=== PATIENT | female | born 1930 | race Caucasian/White ===

== ENCOUNTER 2017-12-16 13:26 | Inpatient (IN) | payer MEDICARE ==
[~2017-12-16] VITALS: Ht 157.5 cm; Wt 73.8 kg
[2017-12-16] MEDS ORDERED: SIMVASTATIN40 MG PO (15:35)
[2017-12-16] MEDS ORDERED: GABAPENTIN100 MG PO (15:36)
--- NOTE | 2017-12-16 17:15 | NUR ---
PT ARRIVED FROM ED. REPORT TAKEN. ASSESSMENT DONE. INTAKE INFORMATION RECIEVED FROM PT AND PTS DAUGHTER, VIRGIL. PT REMAINS ON 3L02 BY MT. PTS HOME NC BEING USED PER PT REQUEST R/T IRRIATION FROM HOSPITAL MT. VITALS TAKEN. FLUIDS STARTED. PT PLACED ON TELE #3 PER MD ORDER. PT DENIES NAUSEA AT THIS TIME. PT NPO. AWAITING STOOL SAMPLE. PT UP TO URINATE, 500ML, DARK URINE. BED RAILSUP. CALL LIGHT WITHIN REACH. FAMILY LEAVING FOR THE NIGHT.
[2017-12-16] MEDS ORDERED: ADULT LOW DOSE81 MG PO (17:16)
[2017-12-16] MEDS ORDERED: VITAMIN D1000 UNIT PO (17:16)
[2017-12-16] MEDS ORDERED: TOPROL XL25 MG PO (17:20)
[2017-12-16] MEDS ORDERED: LOSARTAN POTASS50 MG PO (17:20)
--- NOTE | 2017-12-16 18:33 | NUR ---
PT ARRIVED TODAY FOR COLITIS. NPO. 1-2PA, FWW. BEDSIDE COMODE. STOOL SAMPLE NEEDED. BASELINE O2 AT 3L NC. TELE #3. BED ALARM. PT NOT USING CALL LIGHT.
--- NOTE | 2017-12-16 20:08 | NUR ---
RECEIVED REPORTF ROM DAY SHIFT RN. PATIENT IS RESTING IN BED WITH EYES CLOSED. RR 18. CALL LIGHT IN REACH.
--- NOTE | 2017-12-16 22:20 | NUR ---
PATIENT ASSESMENT COMPLETED. PATIENT REPOSITIONED IN BED. PATIENT DENIES ANY NAUSEA. PATIENTS EVENING MEDICAITONS GIVEN PER ORDER. PATIENT DENIES ANY NEEDS AT THIS TIME. PATIENT IS DROWSY BUT EASY TO AWAKE. CALL LIGHT IN REACH.
--- NOTE | 2017-12-16 23:32 | NUR ---
PATIENT IS RESTING IN BED WITH EYES CLOSED, RR 17. CALL LIGHT IN REACH AND BE DALARM ON FOR SAFETY.
--- NOTE | 2017-12-17 02:37 | NUR ---
PATIENTS VITALS TAKEN AND RECORDED BY STRIPPER APPRENTICE. PATIENT ASSISTED A 1PA W/FWW TO [facility]. PATIENT WAS ABLE TO VOID. PATIENT IS BACK IN BED RESTING. NEW IV PLACED. PATIENT DENIES ANY FURTHER NEEDS AT THIS TIME. PATIENTS CALL LIGHT IS WITHIN REACH AND BED ALRM ON FOR SAFETY. PATIENT DENIES ANY PAIN OR NAUSEA.
--- NOTE | 2017-12-17 04:57 | NUR ---
PATIENT IS RESTING IN BED WITH EYES CLOSED, RR 17. CALL LIGHT IN REACH AND ALARM ON FOR SAFETY.
--- NOTE | 2017-12-17 05:06 | NUR ---
PATIENT RESTED WELL THROUGHOUT THE SHIFT. PATIENT IS NPO AT THIS TIME. PATIENT IS A 1PA W/FWW. PATIENT IS ON 3L VIA NC AND THIS IS CHRONIC. PATIENT IS ON TELE #3, NSR, AND HR IN THE 80-90'S. PATIENT IS FORGETFUL AT TIMES. BED ALARM IS ON FOR SAFETY. NO BMS THIS SHIFT. STOOL SAMPLE NEEDED.
--- NOTE | 2017-12-17 05:41 | NUR ---
PATIENTS VITALS TAKEN AND RECORDED. PATIENT ASSISTED TO THE RESTROOM A 1PA TO THE BSC. PATIEN WAS ABLE TO VOID. PATIENT IS BACK IN BED RESTING. NO NAUSEA OR PAIN NOTED. PATIENTS MORNING MEDICATIONS GIVEN PER ORDER. PATIENT REMAINS NPO.
--- NOTE | 2017-12-17 08:15 | NUR ---
PATIENT WASHED HANDS AND FACE. ORAL AND DENTURE CARE DONE. TALKED TO RN AND PATIENT ABOUT POSSIBLE SHOWER THIS AFTERNOON AFTER IV ANTIBIOTICS ARE FINISHED IF PATIENT IS FEELING UP TO IT.
--- NOTE | 2017-12-17 08:42 | NUR ---
PT AWAKE IN BED, ALERT AND ORIENTED. LINDSEY TAI ASSISTED PT TO WASH FACE AND BRUSH DENTURES. NOTED PT HAVE OCC DRY COUGH. REPORTS 08/09 "ACHE" IN ABD, STATES "I THINK IT'S FROM THROWING UP." DENIES NAUSEA OR ABD CRAMPING, DENIES HAVING BM OR PASSING GAS. IV INFUSING WNL. ASSESSMENT COMPLETED. CALL LIGHT WITHIN REACH, DAUGHTER AT BEDSIDE.
[2017-12-17] MEDS ORDERED: TOPROL XL25 MG PO (10:08)
[2017-12-17] MEDS ORDERED: PRILOSEC OTC20 MG PO (10:10)
[2017-12-17] MEDS ORDERED: ARTHRITIS PAIN650 MG PO (10:12)
--- NOTE | 2017-12-17 10:20 | NUR ---
PT AWAKE IN BED. DENIES NEEDS OR CONCERNS AT THIS TIME. CALL LIGHT WITHIN REACH.
--- NOTE | 2017-12-17 10:23 | NUR ---
MED REC COMPLETE
--- NOTE | 2017-12-17 10:25 | NUR ---
SPOKE WITH PATIENT AND DAUGHTER IN ROOM. PATIENT AWAKE, ORIENTED. PATIENT STATES SHE FEELS "SOMEWHAT BETTER". PATIENT LIVES WITH DAUGHTER WHO IS CAREGIVER. PATIENT HAS WALKERS AT HOME, USES THEM FOR AMBULATION. PATIENT DOES NOT HAVE WHEELCHAIR, BUT HAS A RAMP AT THE HOME. PATIENT IS CHRONICALLY ON OXYGEN. SHE OWNS HER OWN CONCENTRATOR. DAUGHTER STATES SHE ONLY LEAVES HER FOR SHORT TIMES. DAUGHTER WORKS WITHIN FEW MINUTES FROM HOME. PATIENT HAS LIFE ALERT IN PLACE AT HOME. PATIENT AND DAUGHTER EXPECT PATIENT TO RETURN HOME AT DISCHARGE. DAUGHTERS ONLY CONCERN IS PATIENT WAS SO WEAK SHE WAS HAVING TROUBLE GETTING HER UP. DISCUSSED WE WILL HAVE PHYSICAL THERAPY SEE PATIENT AND IF SHE NEEDS FOLLOW AT HOME WE CAN GET THAT ORDERED. PATIENT STATES "I THINK I'LL DO FINE WHEN I FEEL BETTER". UPDATED DR GALEANA AND STAFF.
--- NOTE | 2017-12-17 12:20 | NUR ---
PT ADVANCED TO CLEAR LIQUIDS, GEOVANNA WELL SO FAR. PT DENIES NAUSEA OR OTHER CONCERNS. DAUGHTER AT BEDSIDE. BED ALARM ON.
--- NOTE | 2017-12-17 14:50 | NUR ---
PT RESTING IN BED WITH EYES CLOSED, RESP EVEN AND UNLABORED. BED ALARM ON.
--- NOTE | 2017-12-17 15:11 | NUR ---
DAUGHTER ASKING ABOUT FOODS PATIENT CAN AND SHOULDN'T EAT. PATIENT LIVES WITH HER DAUGHTER, VIRGIL. PATIENT EATS TWO MEALS WITH HER DAUGHTER AND IS ON HER OWN DURING THE DAY. SHE SUCKS ON JOLLY RANCHERS THROUGHOUT THE DAY. HER DAUGHTER THINKS IT COULD BE UP TO 20 PIECES A DAY. DRINKS 3 CUPS OF COFFEE AND ABOUT 3 CUPS OF WATER. EATS MEAT 1-2 TIMES/MONTH. LIKES PEACH YOPLAIT YOGURT. WOULD EAT A WHOLE BOX OF MAC & CHEESE IF YOU LET HER. WITH VIRGIL I DISCUSSED SOME COMMON TRIGGER FOODS, BUT TOLD HER THAT A COLITIS CONDITION IS DIFFERENT FOR EVERYBODY. SHE WILL NEED TO PAY ATTENTION TO SPICES, RAW VEGGIES, DAIRY, AND HIGH-FIBER FOODS AND SEE HOW THEY AFFECT HER MOM. PROVIDED A HANDOUT FROM THE [facility] ON "WHAT TO EAT." SHE APPRECIATED THE INFO AND IDENTIFIED SOME THINGS SHE CAN DO AT HOME TO HELP HER MOM EAT BETTER. IF PATIENT NEEDS LOW-FIBER DIET INFORMATION, I WILL PROVIDE INFO ON THAT WHEN APPROPRIATE.
--- NOTE | 2017-12-17 16:18 | NUR ---
PATIENT RESTING IN BED, EYES CLOSED. CALL LIGHT IN REACH. NO OTHER NEEDS AT THIS TIME.
--- NOTE | 2017-12-17 17:19 | NUR ---
PT RESTING IN BED, REPORTS FEELING DROWSY. DENIES PAIN, NAUSEA OR OTHER CONCERNS. IV INFUSING WNL. CALL LIGHT WITHIN REACH, BED ALARM ON.
--- NOTE | 2017-12-17 17:35 | NUR ---
PT 1PA WITH WALKER TO BSC. BACK TO BED, BED ALARM ON. CALL LIGHT WITHIN REACH. DINNER ORDERED.
--- NOTE | 2017-12-17 19:05 | NUR ---
SHIFT REPORT RECEIVED. PATIENT RESTING IN BED. APPEARED TO BE SLEEPING BUT WOKE EASILY. PATIENT DENIES PAIN, NAUSEA OR VOMITING AT THIS TIME. CALL LIGHT IN REACH.
--- NOTE | 2017-12-17 21:00 | NUR ---
EVENING MEDS GIVEN PER OTDER. PATIENT RESTING IN BED. DENIES PAIN OR NAUSEA. LUNGS ARE CLEAR THROUGHOUT. 3L NC. ABD MILDLY DISTENDED, BOWEL SOUNDS ACTIVE. PATIENT PASSING GAS, NO BM THIS SHIFT. TOLERATING FULL LIQUIDS. PATIENT IS HARD OF HEARING BUT ORIENTED X4. IV FLUIDS INFUSING, IV SITE WNL. NO OTHER NEEDS AT THIS TIME. TELE #3, HR IN THE 80'S.
--- NOTE | 2017-12-17 21:29 | NUR ---
VITALS AND I&OS DONE AND CHARTED. FRESH WATER OFFERED, SHE DID NOT WANT. BEDSIDE TABLE AND CALL LIGHT WITHIN REACH. PT NEEDS NOTHING ELSE AT THIS TIME.
--- NOTE | 2017-12-17 21:30 | NUR ---
PATIENT UP TO BSC. TOLERATED WELL. SBA W/FWW. PATIENT DENIES DIZZINESS. CCU RN RECOGNIZED SUSTAINED V TACH ON PATIENT TELE. MD CONTACTED, NEW ORDERS FOR EKG AND LABS. PATIENT AWARE, ALL QUESTIONS ANSWERED.
--- NOTE | 2017-12-17 22:12 | NUR ---
EKG DONE, HAS SEEN PRINT OUT. NO NEW ORDERS.
--- NOTE | 2017-12-17 23:00 | NUR ---
IV ABX FINISHED. PATIENT SLEEPING SOUNDLY. CALL LIGHT IN REACH.
--- NOTE | 2017-12-17 23:16 | NUR ---
CHANGED PTS TELE BATTERY.
--- NOTE | 2017-12-18 03:00 | NUR ---
PATIENT RESTING IN BED. IV FLUIDS INFUSING PER ORDER, SITE WNL. 3L NC. CALL LIGHT IN REACH.
--- NOTE | 2017-12-18 03:04 | NUR ---
VITALS AND I&OS DONE AND CHARTED. HELPED PT TO THE BSC AND BACK TO BED. BEDSIDE TABLE AND CALL LIGHT IN REACH. PT VERY THANKFUL TO ME FOR HELPING HER.
--- NOTE | 2017-12-18 05:57 | NUR ---
VITALS AND I&OS DONE AND CHARTED. BEDSIDE TABLE AND CALL LIGHT WITHIN REACH. FRESH WATER GIVEN
--- NOTE | 2017-12-18 06:00 | NUR ---
MORNING ABX STARTED. EDUCATION TO PATIENT. SHE IS HOPEFUL TO GO HOME THIS AM. DISCUSSED PLAN OF CARE. PATIENT READY TO ORDER CREAM OF WHEAT FOR BREAKFAST. NO PAIN OR NAUSEA. DENIES TOILETING NEEDS AT THIS TIME. CALL LIGHT IN REACH.
--- NOTE | 2017-12-18 06:22 | NUR ---
PATIENT SLEPT WELL DURING THE NIGHT. CCU RECOGNIZED SUSTAINED VTACH ON TELE WHEN PATIENT UP TO BS, LABS & EKG WERE NORMAL. PATIENT CALLS APPROPRIATLY, ORIENTED X4. SBA W/FWW TO BSC, HX VERTIGO. IV FLUIDS & ABX. AAT DIET TO REGULAR. PATIENT ORDERED CREAM OF WHEAT THIS AM. NO PAIN OR NAUSEA. NO LOOSE STOOLS DURING THE NIGHT. URINE OUTPUT QS. 3L NC, CHRONIC.
--- NOTE | 2017-12-18 07:10 | NUR ---
REPORT RC'D FROM BLUEPRINT DEVELOPER NURSE. PT RESTING IN COMFORTABLY IN BED AND REQUESTING BREAKFAST. RESPIRATIONS EVEN AND UNLABORED. CONTINUOUS IV FLUIDS INFUSING. DENIES ANY OTHER NEEDS AT THIS TIME. CALL LIGHT WITHIN REACH.
--- NOTE | 2017-12-18 07:45 | NUR ---
NEW BAG OF D5 1/2 NS WITH 20 MEQ K HUNG. PT ASSISTED TO BSC WITH FWW AND SBA. PT ASSISTED BACK TO BED. PT COMPLETED WITH BREAKFAST TRAY, DID NOT LIKE BREAKFAST, GIVEN JELLO, DENIES NAUSEA. PT DENIES OTHER NEEDS AT THIS TIME.
--- NOTE | 2017-12-18 09:10 | NUR ---
PT RESTING IN BED, A&O X3 AND RESPONDING APPROPRIATELY. RESPIRATIONS EVEN AND UNLABORED ON 3L NC. D5 1/2 NS WITH 20 MEQ POASSIUM INFUSING AT 100 ML/HR, LFA IV PATENT, WNL. BOWEL TONES ACTIVE IN ALL FOUR QUADRANTS, DENIES N/V/D. TRACE EDEMA NOTED IN BLE. CRACKELS NOTED IN BILATERAL LOWER BASES AND EDUCATED ON DEEP BREATHING, VERBALIZED AN UNDERSTANDING. ALL MORNING MEDICATIONS ADMINISTERED.
--- NOTE | 2017-12-18 10:29 | NUR ---
NEW ORDERS RC'D FROM DR. GALEANA. PT UPDATED ON PLAN OF CARE.
--- NOTE | 2017-12-18 10:35 | NUR ---
ORTHOSTATIC VITALS COMPLETED PER ORDER. PT TOELRATED WELL, DENIES DIZZINESS. PT SALINE LOCKED. LAB TO BEDSIDE FOR STAT LABS. SHIPPING TECHNICIAN TO ASSIST PT WITH SHOWER. TELEMETERY REMOVED. PT DENIES OTHER NEEDS AT THIS TIME.
--- NOTE | 2017-12-18 11:00 | NUR ---
PATIENT UP TO SHOWER WITH FWW STANDBY ASSIST. PATIENT HAD NO COMPLAINTS ABOUT BEING DIZZY NOR SHORT OF BREATH. PATIENT UP TO CHAIR STATES THAT SHE FEELS GOOD. WARM BLANKET GIVEN CALL BUTTON IN REACH. NO OTHER NEEDS AT THIS TIME.
[2017-12-18] MEDS ORDERED: CIPROFLOXACIN500 MG PO (12:35)
[2017-12-18] MEDS ORDERED: METRONIDAZOLE250 MG PO (12:36)
--- NOTE | 2017-12-19 07:24 | EKG ---
[facility] [address] [facility] [address] [place] [address] Signed Normal sinus rhythm Left axis deviation Abnormal ECG No previous ECGs available Confirmed by KIMBERLI GALEANA MD ([id number]) on 12/19/2017 7:24:19 AM Electronically Signed By: KIMBERLI GALEANA MD 12/19/17 0724 PATIENT NAME: JOSEPH SHUKLA BRIELLE Electrocardiogram DATE OF : [birth year] PHYSICIAN: KIMBERLI GALEANA MD REPORT #: [id number] REPORT IS CONFIDENTIAL AND NOT TO BE RELEASED WITHOUT AUTHORIZATION
== END 2017-12-18 13:10 | disposition home or self-care (01) | DRG 392 ==
LOC: ED 13:26 → MS 16:31
PROVIDERS: ADMIT Internal Medicine
DX: K52.9 Noninfective gastroenteritis and colitis, unspecified (principal); I10 Essential (primary) hypertension; E74.39 Other disorders of intestinal carbohydrate absorption; M19.90 Unspecified osteoarthritis, unspecified site; J84.10 Pulmonary fibrosis, unspecified; Z99.81 Dependence on supplemental oxygen; D64.9 Anemia, unspecified; T39.015A Adverse effect of aspirin, initial encounter; G62.9 Polyneuropathy, unspecified; E55.9 Vitamin D deficiency, unspecified; E04.9 Nontoxic goiter, unspecified; E78.5 Hyperlipidemia, unspecified; Z66 Do not resuscitate; Z86.73 Personal history of transient ischemic attack (TIA), and cerebral infarction without residual deficits; Z87.891 Personal history of nicotine dependence; Z79.899 Other long term (current) drug therapy
CPT/HCPCS: 36415; 71045; 74177; 80048; 80053; 81001; 82150; 83605; 83690; 83735; 84100; 85018; 85025; 93005; 93010; 96361; 96365; 96375; 97116; 97161; 99285; J0692; J0744; J1170; J1650; J2405; J7030; J7060; Q9967

== ENCOUNTER 2018-01-27 17:31 | Emergency (ER) | payer MEDICARE ==
[~2018-01-27] VITALS: Ht 157.5 cm; Wt 73.8 kg
--- OUTSIDE RECORDS SUMMARY | ~2018-01-27 | XMS | Clinical Summary ---
Demographics + + + | Address | [address] | | | [place] [address] | + + + | Home Phone | | + + + | Preferred Language | Unknown | + + + | Marital Status | Single | + + + | Pentecostalism Affiliation | Unknown | + + + | Race | Unknown | + + + | Ethnic Group | Unknown | + + + Author + + + | Author | [email or web address] | + + + | Organization | [facility] [employer] | + + + | Address | Unknown | + + + | Phone | Unavailable | + + + Care Team Providers + +------+ + | Care Fixed Wing Aircraft Crew Chief Name | Role | Phone | + +------+ + PP | Unavailable | + +------+ + Allergies Not on File Current Medications Not on file Active Problems Not on file Social History + +-------+ +--------+------+ | Tobacco Use | Types | Packs/Day | Years | Date | | | | | Used | | + +-------+ +--------+------+ | Never Assessed | | | | | + +-------+ +--------+------+ + + + | Sex Assigned at | Date Recorded | | | | + + + | Not on file | | + + + Plan of Treatment Not on file Results Not on filefrom Last 3 Months Insurance + +--------+ +------+-------+ + | Payer | Benefi | Subscriber | Type | Phone | Address | | | t Plan | ID | | | | | | / | | | | | | | Group | | | | | + +--------+ +------+-------+ + | MEDICARE | MEDICA | [id number] | | | [address] | | | RE | | | | [place] [address] | | | IP-OP | | | | | + +--------+ +------+-------+ + + +--------+ +--------+ + + | Guarantor Name | Accoun | Relation to | Date | Phone | Billing Address | | | t Type | Patient | of | | | | | | | | | | + +--------+ +--------+ + + | JOESPH BRADY | Person | Self [birth year] | Home: | [address] | | | al/Fam | | 1930 | [phone] | [place] [address] | | | hanny | | | [phone] | | + +--------+ +--------+ + +"
--- OUTSIDE RECORDS SUMMARY | ~2018-01-27 | XMS | Clinical Summary ---
Demographics + + + | Address | [address] | | | [place] [address] | + + + | Home Phone | | + + + | Preferred Language | Unknown | + + + | Marital Status | Single | + + + | Mosque Affiliation | Unknown | + + + | Race | Unknown | + + + | Ethnic Group | Unknown | + + + Author + + + | Author | [facility] | + + + | Organization | [facility] [employer] [facility] | + + + | Address | Unknown | + + + | Phone | Unavailable | + + + Care Team Providers + +------+ + | Care Mechanical Shovel Operator Name | Role | Phone | + [...] +------+-------+ + | MEDICARE | MEDICA | [id number] | | | [address] | | | RE | | | | [place] [address] | | | IP-OP | | | [...] | 1930 | [phone] | [place] [address] | | | hanny | | | [phone] | | + +--------+ +--------+ + +"
[~2018-01-27 17:31] MED LIST: ADULT LOW DOSE81 MG PO; ARTHRITIS PAIN650 MG PO; CIPROFLOXACIN500 MG PO; GABAPENTIN100 MG PO; LOSARTAN POTASS50 MG PO; METRONIDAZOLE250 MG PO; PRILOSEC OTC20 MG PO; SIMVASTATIN40 MG PO; TOPROL XL25 MG PO; VITAMIN D1000 UNIT PO
--- NOTE | 2018-01-28 16:34 | EKG ---
[facility] [address] [place] [address] Signed Normal sinus rhythm Anterior infarct , age undetermined Abnormal ECG When compared with ECG of 17-DEC-2017 21:38, T wave inversion more evident in Anterior leads Confirmed by KIMBERLI GALEANA MD ([id number]) on 01/28/2018 4:33:49 PM Electronically Signed By: KIMBERLI GALEANA MD 01/28/18 1634 PATIENT NAME: JOSEPH SHUKLA Electrocardiogram DATE OF : [birth year] PHYSICIAN: KIMBERLI GALEANA MD REPORT #: [id number] REPORT IS CONFIDENTIAL AND NOT TO BE RELEASED WITHOUT AUTHORIZATION
== END 2018-01-27 21:46 | disposition home or self-care (01) ==
LOC: ED 17:31
PROC: 0T9B70Z Drainage of Bladder with Drainage Device, Via Natural or Artificial Opening (ICD-10-PCS; principal; 2018-01-27)
DX: R53.1 Weakness (principal); Z86.73 Personal history of transient ischemic attack (TIA), and cerebral infarction without residual deficits; Z87.891 Personal history of nicotine dependence; Z91.013 Allergy to seafood; Z79.899 Other long term (current) drug therapy
CPT/HCPCS: 51701; 71045; 80053; 81001; 83690; 84484; 85025; 93005; 93010; 96360; 99285; J7040

== ENCOUNTER 2018-01-28 08:48 | Inpatient (IN) | payer MEDICARE ==
[~2018-01-28] VITALS: Ht 157.5 cm; Wt 70.8 kg
--- OUTSIDE RECORDS SUMMARY | ~2018-01-28 | XMS | Clinical Summary ---
Demographics + + + | Address | [address] | | | [place] [address] | + + + | Home Phone | | + + + | Preferred Language | Unknown | + + + | Marital Status | Single | + + + | Religion Affiliation | Unknown | + + + | Race | Unknown | + + + | Ethnic Group | Unknown | + + + Author + + + | Author | [facility] | + + + | Organization | [facility] [employer] [facility] | + + + | Address | Unknown | + + + | Phone | Unavailable | + + + Care Team Providers + +------+ + | Care Hot Tamale Man Name | Role | Phone | + [...] +------+-------+ + | MEDICARE | MEDICA | [id number] | | | [address] | | | RE | | | | [place] [address] | | | IP-OP | | | | | + +--------+ +------+-------+ + + +--------+ +--------+ + + | Guarantor Name | Accoun | Relation to | Date | Phone | Billing Address | | | t Type | Patient | of | | | | | | | | | | + +--------+ +--------+ + + | JOSEPH BRADY | Person | Self | [birth year] | Home: | [address] | | | al/Fam | | 1930 | [phone] | [place] [address] | | | h[place] | | | [phone] | | + +--------+ +--------+ + +"
--- OUTSIDE RECORDS SUMMARY | ~2018-01-28 | XMS | Clinical Summary ---
Demographics + + + | Address | [address] | | | [place] [address] | + + + | Home Phone | | + + + | Preferred Language | Unknown | + + + | Marital Status | Single | + + + | Mormonism Affiliation | Unknown | + + + | Race | Unknown | + + + | Ethnic Group | Unknown | + + + Author + + + | Author | [facility] | + + + | Organization | [facility] | + + + | Address | Unknown | + + + | Phone | Unavailable | + + + Care Team Providers + +------+ + | Care Diesel Truck Technician Name | Role | Phone | + +------+ + PP | Unavailable | + +------+ + Allergies Not on File Current Medications Not on file Active Problems Not on file Encounters +--------+ + + + + | Date | Type | Specialty | Care Team | Description | +--------+ + + + + | 01/28/ | Hospital | | Jose Longo MD | Diagnosis unknown | | 2017 | Encounter | | | | +--------+ + + + + | 01/28/ | Ancillary | | Shaneka Hubbard Procedure | Diagnosis unknown | | 2018 | Orders | | Radiologist | | +--------+ + + + + from Last 3 Months Social History + +-------+ +--------+------+ | Tobacco [...] + Plan of Treatment Not on file Procedures + +--------+ + + + | Procedure Name | Priori | Date/Time | Associated Diagnosis | Comments | | | ty | | | | + +--------+ + + + | CT HEAD WO CONTRAST | Routin | 01/28/2018 | Diagnosis unknown | Results for this | | | e | 10:57 AM | | procedure are in the | | | | PDT | | results section. | + +--------+ + + + from Last [address] head without contrast (01/28/2018 10:57 AM) + + + | Narrative | Performed At | + + + | This is a non-reportable procedure without a radiologist report and | [facility] | | is used for image storage only | [facility]IOLOGY | + + + + + + + + | Performing | Address | City/State/Zipcode | Phone Number | | Organization | | | | + + + + + | [facility] | [address] | [place] [address] | | + + + + + from Last 3 Months Insurance + +--------+ +------+-------+ + | Payer | Benefi | Subscriber | Type | Phone | Address | | | t Plan | ID | | | | | | / | | | | | | | Group | | | | | + +--------+ +------+-------+ + | MEDICARE | MEDICA | [id number] | | | [address] | | | RE | | | | [place] [address] | | | IP-OP | | | | | + +--------+ +------+-------+ + + +--------+ +--------+ + + | Guarantor Name | Accoun | Relation to | Date | Phone | Billing Address | | | t Type | Patient | of | | | | | | | | | | + +--------+ +--------+ + + | JOSEPH SHUKLA | Person | Self | [birth year] | Home: | [address] | | | al/Fam | | 1930 | [phone] | [place] [address] | | | [place] | | | [phone] | | + +--------+ +--------+ + +"
--- OUTSIDE RECORDS SUMMARY | ~2018-01-28 | XMS | Encounter Summary ---
Demographics + + + | Address | [address] | | | [place] [address] | + + + | Home Phone | | + + + | Preferred Language | Unknown | + + + | Marital Status | Single | + + + | Yarsanism Affiliation | Unknown | + + + | Race | Unknown | + + + | Ethnic Group | Unknown | + + + Author + + + | Author | [facility] | + + + | Organization | [facility] | + + + | Address | Unknown | + + + | Phone | Unavailable | + + + Care Team Providers + +------+ + | Care Tool And Die Designer Name | Role | Phone | + +------+ + PCP | Unavailable | + +------+ + Reason for Visit MRI/CAT Scan (Routine) + +--------+ + + + + | Status | Reason | Specialty | Diagnoses / | Referred By | Referred To | | | | | Procedures | Contact | Contact | + +--------+ + + + + | Pending | | Radiology | Diagnoses | , [facility] | | | Review | | | Diagnosis | Procedure | | | | | | unknown | Radiologist | | | | | | Procedures | | | | | | | CT head | | | | | | | without | | | | | | | contrast | | | + +--------+ + + + + Encounter Details +--------+ + + + + | Date | Type | Department | Care Team | Description | +--------+ + + + + | 01/28/ | Hospital | [facility] | Jose Longo MD | Diagnosis unknown | | 2018 | Encounter | [facility] | [address] | | | | | RADI[address] | [place] [address] | | | | | [address] | [phone] | | | | | [place] [address] | | | | | | [phone] | | | +--------+ + + + + Social History + +-------+ +--------+------+ | Tobacco [...] on file | | + + + as of this encounter Plan of Treatment Not on fileas of this encounter Procedures + +--------+ + + + | [...] section. | + +--------+ + + + in this encounter Results CT head without contrast (01/28/2018 10:57 AM) + + + | Narrative | Performed At | + + + | This is a non-reportable procedure without a radiologist report and | [facility] | | is used for image storage only | RADIOLOGY | + + + + + + + + | Performing | Address | City/State/Zipcode | Phone Number | | Organization | | | | + + + + + | [facility] | [address] | [place] [address] | | + + + + + in this encounter Visit Diagnoses + + | Diagnosis | + + | Diagnosis unknown | + + | Other unknown and unspecified cause of morbidity or mortality | + +"
--- OUTSIDE RECORDS SUMMARY | ~2018-01-28 | XMS | Encounter Summary ---
Demographics + + + | Address | [address] | | | [place] [address] | + + + | Home Phone | | + + + | Preferred Language | Unknown | + + + | Marital Status | Single | + + + | Confucianism Affiliation | Unknown | + + + | Race | Unknown | + + + | Ethnic Group | Unknown | + + + Author + + + | Author | [facility] | + + + | Organization | [facility] | + + + | Address | Unknown | + + + | Phone | Unavailable | + + + Care Team Providers + +------+ + | Care Apartment Groundskeeper Name | Role | Phone | + +------+ + PCP | Unavailable | + +------+ + Reason for Referral MRI/CAT Scan (Routine) + +--------+ + + + + | Status | Reason | Specialty | Diagnoses / | Referred By | Referred To | | | | | Procedures | Contact | Contact | + +--------+ + + + + | Pending | | Radiology | Diagnoses | Xr[facility] | | | Review | | | [...] + + | 01/28/ | Ancillary | [facility] | [facility] Procedure | Diagnosis unknown | | 2018 | [facility] | Radiologist | | | | | [address] | | | | | | [place] [address] | | | | | | [phone] | | | +--------+ + + + [...] Treatment Not on fileas of this encounter Results CT head without contrast (01/28/2018 10:57 AM) + + + | Narrative | Performed At | + + + | This is a non-reportable procedure without a radiologist report and | [facility] | | is used for image storage only | RADIOLOGY | + + + + + + + + | Performing | Address | City/State/Zipcode | Phone Number | | Organization | | | | + + + + + | [facility] | [address] | [place] [address] | | + + + + + in this encounter Visit Diagnoses + + | Diagnosis | + + | Diagnosis unknown | + + | Other unknown and unspecified cause of morbidity or mortality | + +"
--- OUTSIDE RECORDS SUMMARY | ~2018-01-28 | XMS | Clinical Summary ---
Demographics + + + | Address | [address] | | | [place] [address] | + + + | Home Phone | | + + + | Preferred Language | Unknown | + + + | Marital Status | Single | + + + | Christianity Affiliation | Unknown | + + + | Race | Unknown | + + + | Ethnic Group | Unknown | + + + Author + + + | Author | [facility] | + + + | Organization | [facility] | + + + | Address | Unknown | + + + | Phone | Unavailable | + + + Care Team Providers + +------+ + | Care Absence Management Consultant Name | Role | Phone | + [...] +------+-------+ + | MEDICARE | MEDICA | [id number] | | | [address] | | | RE | | | | [place] [phone] | | | IP-OP | | | [...] | [phone] | [phone] [place] [address] | | | hanny | | | [phone] | | + +--------+ +--------+ + +"
--- NOTE | 2018-01-28 17:27 | NUR ---
Medications reconciled with pharmacy records and RX bottles
--- NOTE | 2018-01-28 17:40 | NUR ---
PATIENT SITTING UP IN BED TALKING TO FAMILY ON PHONE. FRESH WATER GIVEN. CALL LIGHT IN REACH. NO FURTHER NEEDS AT THIS TIME.
--- NOTE | 2018-01-28 18:31 | NUR ---
NEW ED ADMIT. HEMORRHAGIC STROKE. LEFT LEG WEAKNESS. WHEELCHAIR BASELINE. LIVES WITH DAUGHTER. FALL X2 AT HOME. NS @ 75 IN LH. HARD STICK. ANXIETY/VERY PARTICULAR AND IRRITABLE AT TIMES. SPEECH EVAL WITH SPEECH THERAPY IN THE MORNING. SOFT, SMOOTH FOODS ALLOWED FOR NOW. NO APPARENT SWALLOWING DIFFICULTY. EDEMA LE. ALLEVYN TO COCCYX.
--- NOTE | 2018-01-28 19:20 | NUR ---
SHIFT REPORT RECEIVED. PATIENT APPEARED TO BE SLEEPING. WOKE EASILY TO VOICE. NO NEEDS AT THIS TIME. CALL LIGHT IN REACH.
--- NOTE | 2018-01-28 21:24 | NUR ---
VITALS AND I&OS DONE AND CHARTED. FRESH WATER GIVEN. BEDSIDE TABLE AND CALL LIGHT IN REACH.
--- NOTE | 2018-01-28 21:27 | NUR ---
IN ROOM FOR EVENING MEDS. PT ASSESSMENT/NEURO ASSESSMENT COMPLETE. PT AOX4, PERRLA, FACE SYMMETRICAL, TONGUE MIDLINE. EXTREMITY STRENGTH EQUAL BILATERALLY. PT DENIED ANY NUMBNESS OR TINGLING IN HER EXTREMITIES. DENIES N/V. LS CLEAR, BT ACTIVE, NO ABD. TENDERNESS. PULSES STRONG AND EQUAL BILATERALLY. PITTING EDEMA NOTED ON BILATERAL LOWER EXTREMITIES. IV WNL. PT RESTING COMFORTABLY IN BED, REPOSITIONED. PT PLEASANT AND APPROPRIATE. PT TOLERATED PO MEDS WITHOUT DIFFICULTY. NO REQUESTS AT THIS TIME. CALL LIGHT WITHIN REACH.
--- NOTE | 2018-01-29 00:33 | NUR ---
PT SLEEPING SOUNDLY IN BED. IV RUNNING WNL. NO REQUESTS AT THIS TIME. CALL LIGHT WITHIN REACH.
--- NOTE | 2018-01-29 01:35 | NUR ---
VITALS AND I&OS DONE AND CHARTED. HELPED PT ON AND OFF OF THE BEDPAN WITH OSBALDO RESTREPO HELP. BEDSIDE TABLE AND CALL LIGHT IN REACH. PT NEEDS NOTHING MORE AT THIS TIME.
--- NOTE | 2018-01-29 01:46 | NUR ---
IN ROOM FOR PT ASSESSMENT / NEURO CHECK. PT A0X4. PT STATED THAT THE YEAR WAS 1981, BUT CORRECTED HERSELF LATER IN THE ASSESSMENT. PERRLA 2-3 MM BRISK. PT UNABLE TO TRACK MY FINGER TO HER LEFT VISUAL FIELD W/O MOVING HER HEAD. TRACKING TO THE RIGHT IS NORMAL WITH NO HEAD MOVEMENT OR NYSTAGMUS NOTED. PT ALSO HAS EXHIBITED DECREASED PERIPHERAL VISION IN LEFT VISUAL FIELD. DURING THE ASSESSMENT MY FINGER TIP WAS MORE THAN 10 IN[address] IN FRONT OF HER BEFORE SHE MENTIONED BEING ABLE TO VISUALISE MY FINGER. PT'S SPEECH CLEAR, STRENGTH IN UPPER EXTREMITIES EQUAL BILATERALLY. PT DENIES ANY NUMBNESS OR TINGLING. LS CLEAR, PULSES EQUAL, BT ACTIVE. IV RUNNING WNL. PT HAS NO FURTHER REQUESTS AT THIS TIME. CALL LIGHT WITHIN REACH.
--- NOTE | 2018-01-29 03:00 | NUR ---
PATIENT SLEEPING SOUNDLY. RR 22. HOB ELEVATED. IV FLUIDS PER ORDER, SITE WNL.
--- NOTE | 2018-01-29 06:39 | NUR ---
PT SLEPT THROUGHOUT THE NIGHT. PT AOX4. CAN BE FORGETFUL. PERRLA, 2-3 MM, BRISK. PT DENIES ANY PAIN. LS CLEAR, BT ACTIVE, ABD. NONTENDER. NO C/O N/V/D. GOOD URINE OUTPUT, USES BEDPAN. EDEMA PRESENT IN LOWER LIMBS. SCD'S ON. L. SHOULDER HAS BEEN SORE, AND L. LEG REMAINS WEAK. PT IS ON TELE #4. NORMAL SINUS. PT ON 3LNC. IV WNL.
--- NOTE | 2018-01-29 06:51 | NUR ---
VITALS AND I&OS DONE AND CHARTED. WITH THE HELP OF OSBALDO OWENS WE GOT HER ON AND OFF THE BED CONLEY. BEDSIDE TABLE AND CALL LIGH IN REACH.
--- NOTE | 2018-01-29 07:05 | NUR ---
SHIFT REPORT RECEIVED FROM SENIOR ESCROW OFFICER RN AT BEDSIDE. PATINET RESTING IN BED, RESPIRATIONS EVEN AND UNLABORED. CALL LIGHT WITHIN REACH.
--- NOTE | 2018-01-29 08:00 | NUR ---
MORNING ASSESSMENT AND ROUTINE MEDICATIONS ADMINISTERED AT THIS TIME. NIH STROKE SCALE ASSESSMENT ALSO COMPLETED AT THIS TIME. PATIENT DENIES PAIN AT THIS TIME. CALL LIGHT WITHIN REACH.
--- NOTE | 2018-01-29 09:58 | NUR ---
pt. resting in bed. pt has no needs at this time. call light patricia newton.
--- NOTE | 2018-01-29 10:00 | NUR ---
I assisted PT with pt assessment. PT wanted to see how well pt could sit up on side of bed and stand. pt was not cooperative at all and very negative. . pt was leaning very badly to the left I placed my hand on her upper arm to stabalize her, that is when pt told me to get my hands off or she was going to punch me in the face. I explained to pt why my hand was where it was and asked that she not speak to me that way. PT wanted to continue assessment but pt refused and was put back to bed. pt is resting now safely in bed with call light in reach.
--- NOTE | 2018-01-29 10:00 | NUR ---
pt offered a shower, pt refused at this time. pt has no further needs at this time. call light within reach.
--- NOTE | 2018-01-29 11:15 | NUR ---
PATIENT STATED, "I FEEL CHILLY". TEMPERATURE OBTAINED, PATIENT'S TEMPERATURE WAS 98.6 DEGREES. PATIENT THEN ASKED FOR A WARM BLANKET. WARM BLANKET GIVEN, PATEINT DENIES FURTHER REQUESTS AT THIS TIME. CALL LIGHT WITHIN REACH.
--- NOTE | 2018-01-29 12:20 | NUR ---
PATIENT COMPLAINING OF INCREASED DIZZINESS. HOSPITALIST CONTACTED, AWAITING NEW ORDERS.
--- NOTE | 2018-01-29 13:29 | NUR ---
PATIENT NOW STATES, "I AM NOT DIZZY ANYMORE" AND REFUSES MECLIZINE 25 MG PO. CALL LIGHT REMAINS WITHIN REACH.
--- NOTE | 2018-01-29 13:56 | NUR ---
pt's family member came to nurse's station to inform us the pt needed to use the bedpan. Nurse Duarte and I assisted the pt onto the bedpan. pt's family member then asked me if I was the girl who helped with the PT assesment this morning, I told her I was, and she told me that I didn't need to speak strongly to the pt as I had this morning. I apologized and left the room. Nurse Duarte thought it best if I no longer go in the room as it is apparent the pt does not care for me. pt was put on bed matute and left in a safe position with call light in reach. pt will call when she is done on the bedpan.
--- NOTE | 2018-01-29 14:12 | NUR ---
pt is resting in bed. daughter is with pt. pt has no needs at this time. call light within reach. pt refused shower at this time.
--- NOTE | 2018-01-29 14:30 | NUR ---
HAD ANOTHER LONG TALK WITH PT AND HER DAUGHTER REGARDING PLACEMENT IN A SNF, DAUGHTER STATES SHE WOULD LIKE TO KEEP HER CLOSE TO HOME WHERE SHE CAN KEEP A DAILY EYE ON HER AND HER CARE. WE ALSO TALKED IF THERE IS PROGRESSION SHE MAY BE ABLE TO GO TO AN INPT STROKE FACILITY, BUT AT THIS TIME SHE IS REQUIRING MORE ASSISTANCE THAN THE INPT STROKE REHAB AND SHE CANNOT TOLERATED 3 HOURS OF THERAPY A DAY. PT AND HER DAUGHTER SEEMED OK WITH THIS INFO. VIRGIL IS GOING TO GO TO [facility] AND CHECK IT OUT.
--- NOTE | 2018-01-29 16:30 | NUR ---
NIH STROKE SCALE ASSESSMENT AND SCHEDULED ATORVASTATIN ADMINISTERED. NEW BAG OF NS HUNG SET AT A CONTINUED RATE OF 75 ML/HR. PATIENT DENIES PAIN AT THIS TIME, CALL LIGHT WITHIN REACH.
--- NOTE | 2018-01-29 17:15 | NUR ---
PT INCONTINENT OF URINE, PERICARE PERFORMED. PT TURNED TO LEFT SIDE AND SUPPORTED WITH PILLOWS. PT DENIES OTHER NEEDS AT THIS TIME.
--- NOTE | 2018-01-29 17:42 | NUR ---
pt is sitting up in bed eating dinner. pt has no further needs at this time. call light within reach.
--- NOTE | 2018-01-29 18:38 | NUR ---
PATIENT CONTINUED TO SCORE A 7 ON THE NIH STROKE SCALE ASSESSMENT. PATIENT HAS COMPLAINED OF DIZZINESS OFF AND ON DURING THE DAY. PATIENT TOOK ORAL MEDICATIONS WITHOUT INCIDENT AND DENIED PAIN THROUGHOUT ENTIRE SHIFT. PATIENT IS ON A SOFT AND SMOOTH DIET.
--- NOTE | 2018-01-29 19:30 | NUR ---
PT RESTING SUPINE IN BED, DENIES NEEDS AT THSI TIME AND APPEARS COMFORTABLY. CALL LIGHT IN REACH AND PT IN VIEW OF NURSING STATION. REPORT RECEIVED FROM DAYSHIFT RN AND ASSESSMENT COMPLETED.
--- NOTE | 2018-01-29 20:55 | NUR ---
VITALS DONE AND CHARTED.
--- NOTE | 2018-01-29 21:27 | NUR ---
PT RESTING IN BED, DENIES PAIN, HS MEDICATIONS ADMINISTERED. PT DENIES NEEDS. CALL LIGHT AND H20 IN REACH.
--- NOTE | 2018-01-29 22:27 | NUR ---
GOT PT OFF OF THE BED CONLEY. TWO WARM BLANKETS GIVEN. PT NEED NOTHING ELSE AT THIS TIME. I&os DONE AND CHARTED.
--- NOTE | 2018-01-29 23:44 | NUR ---
PT RESTING SUPINE IN BED, EYES CLOSED AND RESPIRATIONS EVEN AND UNLAPORED ON 2LPNC. PT APPEARS TO BE SLEEPING COMFORTABLY. PT ALERT TO VOICE AND ASISSTED IN REPOSITIONING TO LEFT LATERAL SIDE IN BED WITH ASSISTANCE FROM . NO NEEDS VOICED, CALL LIGHT AND H20 IN REACH.
--- NOTE | 2018-01-30 01:15 | NUR ---
PT RESTING SUPINE IN BED, EYES CLOSED APPEARS TO BE SLEEPING COMFORTABLY. PT ASSESSMENT PERFORMED AND PT ASSISTED IN REPOSITONING. CALL LIGHT AND H20 IN REACH. PT DENIES FURHTER NEEDS AND STATES SHE IS COMFORTABLE.
--- NOTE | 2018-01-30 04:10 | NUR ---
PT RESTING IN BED EYES CLOSED AND APPEARS COMFORTABLE. CALL LIGHT AND H20 IN REACH.
--- NOTE | 2018-01-30 06:11 | NUR ---
VITALS AND I&OS DONE AND CHARTED. HELPED PT ON AND OFF THE BEDPAN. CHANGED ATTENDS AND CHUCKS UNDER HER DUE TO URINE INCONTINENCE. WITH THE HELP OF RN DAVID WE REPOSITIONED HER IN BED TO HER COMFORT. BEDSIDE TABLE AND CALL LIGHT WITHIN REACH. PT NEEDS NOTHING AT THIS TIME.
--- NOTE | 2018-01-30 06:45 | NUR ---
PT APPEARED TO HAVE SLEPT COMFORTABLY MOST OF THE NIGHT. PT HAS DENIED PAIN, NAUSEA, DIZZINESS OR ANY OTHER NEW SYMPTOMS THIS SHIFT. NO NEW DEFACITS OBSERVED THIS SHIFT. NS continues at 75ml/hr. pt on soft diet. q2hr turns. vss and pt voids qs into bedpan with some urinary incontinance.
--- NOTE | 2018-01-30 06:53 | NUR ---
CHANGED TELE BATTERY.
--- NOTE | 2018-01-30 07:15 | NUR ---
SHIFT REPORT RECEIVED FROM BOOM STORAGE RN AT BEDSIDE. PATIENT IS RESTING IN BED, RESPIRATIONS ARE EVEN AND UNLABORED. CALL LIGHT WITHIN REACH.
--- NOTE | 2018-01-30 08:09 | NUR ---
THIS WELDING TESTER ASSISTED PATIENT TO WASH HANDS AND FACE WITH WARM WASH CLOTH. PATIENT READJUSTED IN BED AND IS SITTING UP EATING BREAKFAST AT THIS TIME. PATIENT STATES SHE WOULD LIKE TO TRY TO SHOWER TODAY IF SHE IS ABLE TO STAND ON HER OWN, RN REQUESTED TO WAIT FOR PHYSICAL THERAPY TO WORK WITH PATIENT FIRST TO SEE IF SHE IS ABLE TO STAND. PATIENT CALL LIGHT IN REACH. PATIENT IS REQUESTING "DIZZY PILLS" AT THIS TIME, RN NOTIFIED. NO OTHER NEEDS AT THIS TIME.
--- NOTE | 2018-01-30 08:32 | NUR ---
THIS TELEVISION PRODUCTION ASSISTANT AND ZAIRE HUGHES ASSISTED PATIENT ONTO A BED CONLEY. THIS TELEVISION PRODUCTION ASSISTANT PERFORMED PERICARE AND APPLIED BARRIER CREAM. PATIENT REPOSITIONED IN BED, WATCHING TV. CALL LIGHT IN REACH. NO OTHER NEEDS AT THIS TIME.
--- NOTE | 2018-01-30 08:45 | NUR ---
MORNING ASSESSMENT AND ROUTINE MEDICATIONS ADMINISTERED AT THIS TIME. PATIENT DENIES PAIN. PATIENT REPORTS EXPERIENCING DIZZINESS WHEN WORKING WITH PHYSICAL THERAPY, PRN MECLIZINE ALSO ADMINISTERED. CALL LIGHT WITHIN REACH.
--- NOTE | 2018-01-30 09:34 | NUR ---
PATIENT COMPLAINS OF INTENSE PAIN WHILE TAKING BLOOD PRESSURE. PATIENT RESTING IN BED, MOANING QUIETLY. PATIENT CALL LIGHT IN REACH, NO OTHER NEEDS AT THIS TIME .
--- NOTE | 2018-01-30 11:00 | NUR ---
Assisted P.T. to stand pt at bedside. Pt was able to stand 3 times with assistance, unable to transfer to chair. Pt assisted back to bed.
--- NOTE | 2018-01-30 12:30 | NUR ---
SPOKE WITH PATIENT AND DAUGHTER VIRGIL IN ROOM. VIRGIL TOURED [facility] THIS MORNING AND FEELS IT WOULD WORK FOR PATIENTS REHAB STAY. WE DISCUSSED MEDICARE PAYMENT AND RULES. QUESTIONS ANSWERED.
--- NOTE | 2018-01-30 14:00 | NUR ---
SPOKE WITH EDITOR PUBLICATIONS AT [facility]. THEY HAVE BEDS AVAILABLE. CLINICALS SENT BY FAX, FAX CONFIRMATION RECEIVED. STAFF UPDATED.
--- NOTE | 2018-01-30 14:30 | NUR ---
Pt daughter giorgio milk shake and chicken nuggets. Educated pt and daughter that chicken nuggets were not part of soft diet. Daughter states she was told by S.T. that she could bring chicken nuggets, reviewed S.T. note, contact S.T. message left to return call. Pt appearing frustrated and upset about diet and cares, discussed plan of care with daughter and pt.
--- NOTE | 2018-01-30 14:54 | NUR ---
PATIENT SITTING UP IN BED COMPLAINING ABOUT LUNCH. FAMILY BROUGHT CHICKEN NUGGETS FOR PATIENT TO EAT, RN NOTIFIED. CALL LIGHT IN REACH. NO OTHER NEEDS AT THIS TIME.
--- NOTE | 2018-01-30 15:51 | NUR ---
CLINICAL CHART PACK WITH PASSR AND TRANSFER FORM LEFT IN PATIENTS CHART FOR POSSIBLE DISCHARGE TOMORROW TO [facility]. SPOKE WITH GROUP BURNER MACHINE. SHE STATES IF PATIENT COMES OVER THE WEEKEND, THEY DO NOT HAVE TRANSPORT. UPDATED STAFF THAT PATIENT WILL NEED TRANSPORT BY [facility] OR FAMILY.
--- NOTE | 2018-01-30 17:45 | NUR ---
SCHEDULED ATORVASTATIN ADMINISTERED. CALL LIGHT WITHIN REACH.
--- NOTE | 2018-01-30 18:09 | NUR ---
PATIENT IS A/O X3. PATIENT'S STRENGTH IN LEFT LEG HAS IMPROVED MILDLY, BUT PATIENT CONTINUES TO DEMONSTRATE GENERALIZED WEAKNESS AND WEAKNESS IN LEFT LOWER EXTREMITY. PATIENT'S APPETITE HAS DECREASED THROUGHOUT SHIFT, BOWEL TONES REMAIN ACTIVE. IV NORMAL SALINE INFUSING AT 75 ML/HR. PATIENT ON A SMOOTH AND SOFT DIET. PATIENT DENIED PAIN THROUGHOUT ENTIRE SHIFT AND TOOK ALL SCHEDULED MEDICATIONS WITHOUT INCIDENT.
--- NOTE | 2018-01-30 20:00 | NUR ---
RECEIVED REPORT AT 1900, FOUND PT IN BED AWAKE. PT HAD NO NEEDS OR CONCERNS AT THAT TIME.
--- NOTE | 2018-01-30 22:00 | NUR ---
V/S OVERALL ARE WDL, DERIC HAS CRACKLES PRESENT, ALL OTHER LOBES ARE CLEAR. WILL CONTINUE TO MONITOR. PT DENIES SOB. ABD SOUNDS ARE PRESENT, LEFT LEG EDEMA IS +2 AND PT IS UNABLE TO MOVE IT. LEFT PEDIS PULS IS +2. PT IS AAO X4 WITH NO VISISBLE NEUROLOGICAL DEFECITS. NO NEW CONCERNS AT THIS TIME.
--- NOTE | 2018-01-31 | NUR ---
PT JUST VOIDED 500ML IN BED CONLEY. PT WAS CLEANED UP AND TURNED TO SIDE. PT IS READY TO SLEEP AGAIN. NO NEW CONCERNS AT THIS TIME.
--- NOTE | 2018-01-31 02:00 | NUR ---
PT IS SLEEPING AT THIS TIME.
--- NOTE | 2018-01-31 04:00 | NUR ---
PT IS SLEEPING AT THIS TIME.
--- NOTE | 2018-01-31 05:47 | NUR ---
PT HAS SOME CRACKLES IN LEFT LOWER AND UPPER LOBE. PT DENIES SOB. HER LEFT LEG ONLY HAS GROSS MOVEMENT PRESENT AND IS ELEVATED DUE TO EDEMA +2. ABD SOUNDS ARE PRESENT. PT IS AAO X4. BP IS SOMEWHAT ELEVATED. OTHERWISE V/S ARE WDL. NO OTHER CONCERNS NOTED SO FAR.
--- NOTE | 2018-01-31 07:08 | NUR ---
SHIFT REPORT RECEIVED FROM CLOTH NEUTRALIZER RN AT BEDSIDE. PATIENT IS LAYING IN BED AND DROWSY. RESPIRATIONS EVEN AND UNLABORED. CALL LIGHT WITHIN REACH, NO REQUESTS AT THIS TIME.
--- NOTE | 2018-01-31 07:50 | NUR ---
BEDPAN APPLIED UNDER PATIENT, WITH 400 MLS OUTPUT. BEDPAN REMOVED, NEW CHUCKS AND BRIEF APPLIED. PATIENT REPOSITIONED IN BED, CALL LIGHT WITHIN REACH.
--- NOTE | 2018-01-31 08:23 | NUR ---
PATIENT TURNED TO HER BACK, DRU CARE DONE AND PATIENT ATTENT AND CHUX CHANGED AT THIS TIME
--- NOTE | 2018-01-31 08:50 | NUR ---
BLOOD PRESSURE PRIOR TO MORNING ADMINISTRATION OF METOPROLOL WAS 186/70. MD NOTIFIED. SCHEDULED METOPROLOL ADMINISTERED, NO ADDITIONAL INTERVENTIONS ORDERED.
--- NOTE | 2018-01-31 08:50 | NUR ---
MORNING ASSESSMENT AND ROUTINE MEDICATIONS ADMINISTERED. PATIENT RESTING IN BED AND WATCHING TELEVISION. CALL LIGHT WITHIN REACH. PATIENT DENIES PAIN OR FURTHER REQUESTS AT THIS TIME.
[2018-01-31] MEDS ORDERED: LIPITOR20 MG PO (08:56)
[2018-01-31] MEDS ORDERED: MECLIZINE HCL25 MG PO (08:57)
[2018-01-31] MEDS ORDERED: FAMOTIDINE20 MG PO (08:58)
== END 2018-01-31 11:30 | disposition home or self-care (01) | DRG 64 ==
LOC: ED 08:48 → MS 11:41
PROVIDERS: ADMIT Internal Medicine
DX: I63.8 Other cerebral infarction (principal); I61.8 Other nontraumatic intracerebral hemorrhage; G81.91 Hemiplegia, unspecified affecting right dominant side; I10 Essential (primary) hypertension; Z66 Do not resuscitate; I70.90 Unspecified atherosclerosis; M19.90 Unspecified osteoarthritis, unspecified site; E04.9 Nontoxic goiter, unspecified; G62.9 Polyneuropathy, unspecified; Z99.81 Dependence on supplemental oxygen; Z87.891 Personal history of nicotine dependence; Z85.3 Personal history of malignant neoplasm of breast; K52.9 Noninfective gastroenteritis and colitis, unspecified
CPT/HCPCS: 36415; 70450; 74177; 80048; 80053; 85025; 92610; 96360; 97110; 97112; 97162; 97166; 97530; 99285; J7030; J7040; Q9967